=== PATIENT | male | born 1950 | race Caucasian/White ===

== ENCOUNTER → 2018-01-29 | Outpatient (CLI) | payer MEDICARE, BC ==
[2016-08-07 11:44] VITALS: BP 122/74
[~2018-01-29] MED LIST: PEPCID40 M1 PO; PRAVACHOL40 MG PO; PRILOSEC 20MG20 MG PO
[2018-01-30 00:44] LABS: TESTOSTERONE 841 ng/dL (221-716)
== END ==
LOC: LAB 08:59
PROVIDERS: Internal Medicine
DX: N52.9 Male erectile dysfunction, unspecified (principal); I47.1 Supraventricular tachycardia

== ENCOUNTER → 2018-12-20 | Outpatient (CLI) | payer MEDICARE, BC ==
[2016-08-07 11:44] VITALS: BP 122/74
[2018-12-20 11:30] LABS: EOS # 0.1 (0.04-0.40); EOS % 2.3 % (0.0-4.0); HEMATOCRIT 48.2 % (42.0-52.0); LYMPH# 1.8 (1.50-4.00); MEAN CELL VOLUME 93 fl (78-100); MEAN CORPUSCULAR HEMOGLOBIN 31 pg (27-31); MEAN CORPUSCULAR HGB CONC 33 g/dL (33-37); MONO # 0.5 (0.20-0.80); NEU # 2.3 (1.40-6.50); PLATELET COUNT 190 K/mm3 (130-400); RED BLOOD COUNT 5.17 M/mm3 (4.20-5.60); RED CELL DISTRIBUTION WIDTH 12.7 % (11.5-14.5); WHITE BLOOD COUNT 4.8 K/mm3 (4.8-10.8)
[2018-12-20 15:16] LABS: ALBUMIN 4.6 g/dL (3.5-5.0); CALCIUM 9.3 mg/dL (8.4-10.2); POTASSIUM 4.3 mmol/L (3.6-5.0); TOTAL BILIRUBIN 0.5 mg/dL (0.2-1.3); TOTAL PROTEIN 7.5 g/dL (6.3-8.2)
== END ==
LOC: LAB 11:04
PROVIDERS: Internal Medicine
DX: R10.32 Left lower quadrant pain (principal)

== ENCOUNTER → 2022-01-02 | Outpatient (CLI) | payer MEDICARE, BC ==
[~2022-01-02] MED LIST changes: +LISINOPRIL2.5 MG PO; +NASACORT A55 MCG/Act NS
== END ==
LOC: RAD 10:39
DX: G31.1 Senile degeneration of brain, not elsewhere classified (principal)
CPT/HCPCS: A9585

== ENCOUNTER → 2022-01-21 | Outpatient (CLI) | payer MEDICARE, BC | LOC: RAD 14:49 | DX: Z01.89 Encounter for other specified special examinations (principal); I08.1 Rheumatic disorders of both mitral and tricuspid valves ==

== ENCOUNTER → 2022-02-14 | Outpatient (CLI) | payer MEDICARE, BC | LOC: LAB 09:51 | DX: N39.0 Urinary tract infection, site not specified (principal); K90.9 Intestinal malabsorption, unspecified; G25.81 Restless legs syndrome; R42 Dizziness and giddiness; R06.00 Dyspnea, unspecified ==

== ENCOUNTER → 2024-03-03 | Outpatient (CLI) | payer MEDICARE, BC ==
[~2024-03-03] MED LIST changes: +Iohexol 350 - 100 ML VIAL IV ONE
== END ==
LOC: RAD 08:51
DX: I16.0 Hypertensive urgency (principal)
CPT/HCPCS: Q9967

== ENCOUNTER → 2024-10-03 | Outpatient (CLI) | payer MEDICARE, BC ==
[~2024-10-03] MED LIST changes: -Iohexol 350 - 100 ML VIAL IV ONE
== END ==
LOC: RAD 08:48
DX: J32.9 Chronic sinusitis, unspecified (principal)